=== PATIENT | male | born 1960 | race Caucasian/White ===

== ENCOUNTER → 2021-10-23 | Day surgery (SDC) | payer OTHER ==
[~2021-10-23] VITALS: Ht 182.9 cm; Wt 127.0 kg
[~2021-10-23] MED LIST: ACYCLOVIR400 MG PO; ASPIRIN EC81 MG PO; ATORVASTATIN CA80 MG PO; BRILINTA60 MG PO; ISOSORBIDE MONO30 MG PO; LASIX20 MG PO; LOPRESSOR25 MG PO; POTASSIUM CHLO10 ME2 PO
[2021-10-23 08:52] LABS: MCH 31.7 pg (25.0-31.0); MCHC 35.4 g/dL (32.0-36.0); MCV 89.6 fL (78.0-100.0); MPV 9.2 fL (6.0-9.5); RBC 5.36 M/uL (4.70-6.00); RDW 12.3 % (11.5-14.0); WBC 8.1 K/uL (4.0-10.5)
[2021-10-23 09:19] LABS: BILIRUBIN - TOTAL 0.9 mg/dL (0.2-1.0); BUN/CREAT RATIO (CALC) 13.8 RATIO; CREATININE 0.8 mg/dL (0.67-1.17); POTASSIUM 3.7 mmol/L (3.5-5.1)
== END | disposition home or self-care (01) ==
LOC: FAS 08:14
PROVIDERS: Surgery
DX: K29.50 Unspecified chronic gastritis without bleeding (principal); K57.30 Diverticulosis of large intestine without perforation or abscess without bleeding; E88.89 Other specified metabolic disorders; K58.9 Irritable bowel syndrome, unspecified; Z79.82 Long term (current) use of aspirin; Z95.5 Presence of coronary angioplasty implant and graft; Z86.010 Personal history of colon polyps
CPT/HCPCS: 36415; 80053; J2250; J2704; J7120